=== PATIENT | male | born 1990 | race Hispanic/Latino ===

== ENCOUNTER 2019-06-11 04:38 | Emergency (ER) | payer BC ==
[2019-06-11] MEDS ORDERED: diphenhydrAMINE 50 MG/ML VIAL ONE (05:02)
[2019-06-11] MEDS ORDERED: methylPREDNISolone Sod Succ/PF 125 MG/2 ML VIAL ONE (05:02)
[2019-06-11] MEDS ORDERED: Famotidine/PF 20 mg/2ml Vial ONE (05:03)
[2019-06-11] MEDS ORDERED: Acetaminophen/Codeine 30-300mg Tablet ONE (05:56)
== END 2019-06-11 06:00 | disposition home or self-care (01) ==
LOC: ERS 04:38
DX: R22.0 Localized swelling, mass and lump, head (principal); T36.0X5A Adverse effect of penicillins, initial encounter; T39.315A Adverse effect of propionic acid derivatives, initial encounter; K08.89 Other specified disorders of teeth and supporting structures; L50.0 Allergic urticaria
CPT/HCPCS: 96374; 96375; J1200; J2930; S0028

== ENCOUNTER 2021-05-29 21:17 | Emergency (ER) | payer BC ==
[2021-05-30 15:31] LABS: SARS-CoV-2 PCR by NAA DETECTED (NotDetected)
== END 2021-05-29 23:24 | disposition home or self-care (01) ==
LOC: ERS 21:17
DX: U07.1 COVID-19 (principal)
CPT/HCPCS: 99283; U0003; U0005

== ENCOUNTER 2021-06-03 00:38 | Emergency (ER) | payer BC | END 2021-06-03 02:05 | disposition home or self-care (01) | LOC: ERS 00:38 | DX: U07.1 COVID-19 (principal); Z79.899 Other long term (current) drug therapy | CPT/HCPCS: 71045 ==